=== PATIENT | male | born 1945 | race Native Hawaiian/Other Pacific Islander ===

== ENCOUNTER 2016-05-16 11:10 | Outpatient (CLI) | payer MEDICARE | END 2016-05-16 11:11 | disposition home or self-care (01) | LOC: VAS 11:10 | PROVIDERS: ATTEND Internal Medicine | DX: M79.604 Pain in right leg (principal); M79.89 Other specified soft tissue disorders | CPT/HCPCS: 93970 ==

== ENCOUNTER 2016-05-30 09:13 | Outpatient (CLI) | payer MEDICARE ==
[2016-05-30] MEDS ORDERED: XYLOCAINE TOPICAL 2% ONE (10:16)
[2016-05-30] MEDS ORDERED: XYLOCAINE TOPICAL 2% TP ONE (11:30)
== END 2016-05-30 09:14 | disposition home or self-care (01) ==
LOC: WOUND 09:13
PROVIDERS: ATTEND Podiatrist
DX: L97.912 Non-pressure chronic ulcer of unspecified part of right lower leg with fat layer exposed (principal); I10 Essential (primary) hypertension; E78.5 Hyperlipidemia, unspecified; M19.90 Unspecified osteoarthritis, unspecified site; Z86.73 Personal history of transient ischemic attack (TIA), and cerebral infarction without residual deficits

== ENCOUNTER 2016-06-06 09:21 | Outpatient (CLI) | payer MEDICARE ==
[2016-06-06] MEDS ORDERED: XYLOCAINE TOPICAL 2% TP ONE ×2 (09:51→12:11)
== END 2016-06-06 09:22 | disposition home or self-care (01) ==
LOC: WOUND 09:21
PROVIDERS: ATTEND Podiatrist
DX: I87.311 Chronic venous hypertension (idiopathic) with ulcer of right lower extremity (principal); L97.811 Non-pressure chronic ulcer of other part of right lower leg limited to breakdown of skin; I10 Essential (primary) hypertension; M19.90 Unspecified osteoarthritis, unspecified site; E78.4 Other hyperlipidemia; I68.8 Other cerebrovascular disorders in diseases classified elsewhere; Z86.73 Personal history of transient ischemic attack (TIA), and cerebral infarction without residual deficits

== ENCOUNTER 2016-06-13 09:22 | Outpatient (CLI) | payer MEDICARE ==
[2016-06-13] MEDS ORDERED: XYLOCAINE TOPICAL 2% ONE (09:26)
[2016-06-13] MEDS ORDERED: XYLOCAINE TOPICAL 2% TP ONE (09:41)
== END 2016-06-13 09:23 | disposition home or self-care (01) ==
LOC: WOUND 09:22
PROVIDERS: ATTEND Podiatrist
DX: I87.311 Chronic venous hypertension (idiopathic) with ulcer of right lower extremity (principal); L97.912 Non-pressure chronic ulcer of unspecified part of right lower leg with fat layer exposed; I10 Essential (primary) hypertension; E78.4 Other hyperlipidemia; F41.9 Anxiety disorder, unspecified; Z86.73 Personal history of transient ischemic attack (TIA), and cerebral infarction without residual deficits; M19.90 Unspecified osteoarthritis, unspecified site; K57.92 Diverticulitis of intestine, part unspecified, without perforation or abscess without bleeding

== ENCOUNTER 2016-06-20 09:30 | Outpatient (CLI) | payer MEDICARE | END 2016-06-20 09:31 | disposition home or self-care (01) | LOC: WOUND 09:30 | PROVIDERS: ATTEND Podiatrist | DX: I87.311 Chronic venous hypertension (idiopathic) with ulcer of right lower extremity (principal); L97.812 Non-pressure chronic ulcer of other part of right lower leg with fat layer exposed; I10 Essential (primary) hypertension; E78.4 Other hyperlipidemia; I68.8 Other cerebrovascular disorders in diseases classified elsewhere; F41.9 Anxiety disorder, unspecified; M19.90 Unspecified osteoarthritis, unspecified site; Z86.73 Personal history of transient ischemic attack (TIA), and cerebral infarction without residual deficits | CPT/HCPCS: 99212; G0463 ==

== ENCOUNTER 2016-07-04 09:01 | Outpatient (CLI) | payer MEDICARE | END 2016-07-04 09:02 | disposition home or self-care (01) | LOC: WOUND 09:01 | PROVIDERS: ATTEND Podiatrist | DX: I87.311 Chronic venous hypertension (idiopathic) with ulcer of right lower extremity (principal); L97.812 Non-pressure chronic ulcer of other part of right lower leg with fat layer exposed; E78.4 Other hyperlipidemia; F41.9 Anxiety disorder, unspecified; M19.90 Unspecified osteoarthritis, unspecified site; Z86.73 Personal history of transient ischemic attack (TIA), and cerebral infarction without residual deficits | CPT/HCPCS: 99212; G0463 ==

== ENCOUNTER 2016-07-11 09:26 | Outpatient (CLI) | payer MEDICARE | END 2016-07-11 09:27 | disposition home or self-care (01) | LOC: WOUND 09:26 | PROVIDERS: ATTEND Podiatrist | DX: I87.311 Chronic venous hypertension (idiopathic) with ulcer of right lower extremity (principal); L97.812 Non-pressure chronic ulcer of other part of right lower leg with fat layer exposed; E78.4 Other hyperlipidemia; I10 Essential (primary) hypertension; F41.9 Anxiety disorder, unspecified; M19.90 Unspecified osteoarthritis, unspecified site; E78.5 Hyperlipidemia, unspecified; Z86.73 Personal history of transient ischemic attack (TIA), and cerebral infarction without residual deficits | CPT/HCPCS: 99211; G0463 ==

== ENCOUNTER 2016-11-22 09:54 | Outpatient (CLI) | payer MEDICARE ==
[2016-11-22 15:12] LABS: Basophils % (Auto) 0.6 % (0.0-1.8); Eosinophils % (Auto) 0.3 % (0.0-4.3); Hemoglobin 14.4 gm/dl (11.8-15.2); Mean Corpuscular HGB Conc 33 % (32-34); Mean Corpuscular Hemoglobin 30 pg (28-32); Mean Corpuscular Volume 90 fl (84-94); Platelet Count 176 K/mm3 (140-440); Red Blood Count 4.89 M/mm3 (3.65-5.03); Red Cell Distribution Width 13.8 % (13.2-15.2); White Blood Count 6.7 K/mm3 (4.5-11.0)
[2016-11-22 15:26] LABS: Alanine Aminotransferase 38 units/L (7-56); Albumin 4.5 g/dL (3.9-5); Albumin/Globulin Ratio 1.4 %; Alkaline Phosphatase 41 units/L (35-129); Anion Gap 20 mmol/L; BUN/Creatinine Ratio 53.33; Blood Urea Nitrogen 16 mg/dL (9-20); Calcium 9.4 mg/dL (8.4-10.2); Carbon Dioxide 25 mmol/L (22-30); Chloride 102.4 mmol/L (98-107); Cholesterol 197 mg/dL (50-199); Glucose 126 mg/dL (75-100); HDL Cholesterol 66 mg/dL (40-59); LDL Cholesterol,Direct 95 mg/dL (50-130); Potassium 4.6 mmol/L (3.6-5.0); Sodium 143 mmol/L (137-145); Total Protein 7.8 g/dL (6.3-8.2); Triglycerides 183 mg/dL (2-149); Uric Acid 7.6 mg/dL (3.5-7.6)
[2016-11-27 01:32] LABS: Vitamin D, 25-OH, Total 20 ng/mL (30-100)
== END 2016-11-22 09:55 | disposition home or self-care (01) ==
LOC: LABHHL 09:54
PROVIDERS: ATTEND Internal Medicine
DX: I10 Essential (primary) hypertension (principal); F41.1 Generalized anxiety disorder; E78.2 Mixed hyperlipidemia; M81.8 Other osteoporosis without current pathological fracture; Z79.899 Other long term (current) drug therapy
CPT/HCPCS: 36415; 80053; 80061; 82306; 82607; 83036; 84153; 84443; 84550; 85025

== ENCOUNTER 2018-11-27 08:26 | Outpatient (CLI) | payer MEDICARE ==
[2018-11-27 11:04] LABS: Chol/HDL Ratio 2.5 %
== END 2018-11-27 08:27 | disposition home or self-care (01) ==
LOC: LAB 08:26
PROVIDERS: ATTEND Internal Medicine
DX: E78.2 Mixed hyperlipidemia (principal); E11.9 Type 2 diabetes mellitus without complications
CPT/HCPCS: 36415; 80061; 83036

== ENCOUNTER 2019-03-12 09:14 | Outpatient (CLI) | payer MEDICARE | END 2019-03-12 09:15 | disposition home or self-care (01) | LOC: LAB 09:14 | PROVIDERS: ATTEND Internal Medicine | DX: E11.9 Type 2 diabetes mellitus without complications (principal) | CPT/HCPCS: 36415; 83036 ==